=== PATIENT | male | born 1960 | race Caucasian/White ===

== ENCOUNTER 2018-09-20 08:37 | Outpatient (CLI) ==
--- NOTE | 2018-09-20 09:07 | DI ---
EXAM: CHEST FRONTAL AND LATERAL VIEWS HISTORY: Shortness of breath. COMPARISON: None FINDINGS: Heart size is within normal limits. Mild hyperinflation. There are scattered calcificati ons suggesting old granulomatous disease. No acute infiltrates are seen. No vascular congestion. T here is no consolidation, visible pleural fluid or pneumothorax. Bones reveal no acute fracture. IMPRESSION: No acute cardiopulmonary process.
--- NOTE | 2018-09-22 10:00 | ECHOCOLOR ---
Date of Exam: 09/20/18 Ordering Physician: DR. DINESH TAN Reason for Echo: ESSENTIAL HYPERTENSION, SOB M-Mode Normal Adult Results LV Dimensions Normal Adult Results AoV Opening excursions >1.6 >1.6 LVEDD-base- 3.5-5.8 4.2 Ao root dimensions 2.0-3.7 3.3 LVESD-base- 3.1-4.6 L. Atrium dimensions 1.9-3.8 3.8 Post. Wall thickness 0.8-1.1 1.2 IV septum (thickness) 0.7-1.2 1.2 Post. Wall excursion 0.72-1.3 NORMAL Septal motion NORMAL Systolic motion R. Ventricular cavity 1.5-2.0 NORMAL LVEF 60% 76% Paradoxical septal wall motion NORMAL 2-D: 2-D M Mode Echocardiogram was performed using apical four chamber and left parasternal long and short axis views. Mitral, tricuspid and aortic valves appear to be normal. Contractility of the left ventricle seems to be normal, so is the cavity size. Left atrial cavity size and aortic root appear to be normal. There is no pericardial effusion. There is no thrombus noted in the left ventricular or left aortic cavity. No mitral valve prolapse noted. DOPPLER WITH COLOR FLOW: NORMAL VALVULAR FLOW INDICES--NO STENOSIS OR REGURGITATION NOTED M-MODE: MV: NORMAL AV: NORMAL TV: NORMAL PV: CHAMBER SIZE: NORMAL WALL MOTION: NORMAL PERICARDIUM: NORMAL INTERPRETATION: 1. LEFT VENTRICULAR HYPERTROPHY 2. NORMAL LEFT VENTRICLE CONTRACTILITY 3. NORMAL VALVULAR FLOW INDICES 4. COLOR FLOW--NO REGURGITATION DIFFICULT STUDY BECAUSE OF RAO HABITUS/ COPD MTDD
== END 2018-09-20 08:38 | disposition home or self-care (01) ==
LOC: CAR 08:37
PROVIDERS: ATTEND Family Medicine
DX: R03.0 Elevated blood-pressure reading, without diagnosis of hypertension (principal); R06.02 Shortness of breath; I10 Essential (primary) hypertension

== ENCOUNTER 2018-09-22 12:51 | Outpatient (CLI) | END 2018-09-22 12:52 | disposition home or self-care (01) | LOC: CAR 12:51 | PROVIDERS: ATTEND Family Medicine | DX: R06.02 Shortness of breath (principal); R03.0 Elevated blood-pressure reading, without diagnosis of hypertension; I10 Essential (primary) hypertension ==